=== PATIENT | female | born 1980 | race Caucasian/White ===

== ENCOUNTER → 2019-08-05 | Outpatient (CLI) | payer BC ==
--- NOTE | 2019-08-06 12:01 | ECHOF ---
Referral Reason:R78.82 elevated C-reactive protein MEASUREMENTS -------- HEIGHT: 162.6 cm WEIGHT: 104.3 kg BP: RVIDd: 3.3 cm (< 3.3) IVSd: 1.1 cm (0.6 - 1.1) LVIDd: 3.8 cm (3.9 - 5.3) LVPWd: 1.6 cm (0.6 - 1.1) IVSs: 1.1 cm LVIDs: 3.3 cm LVPWs: 1.4 cm LA Diam: 3.5 cm (2.7 - 3.8) LAESV Index (A-L): 21.05 ml/m Ao Diam: 3.2 cm (2.0 - 3.7) AV Cusp: 1.8 cm (1.5 - 2.6) LA Diam: 3.3 cm (2.7 - 3.8) MV EXCURSION: 19.783 mm (> 18.000) MV EF SLOPE: 76 mm/s (70 - 150) EPSS: 0.9 cm MV E Parrish: 0.57 m/s MV DecT: 243 ms MV A Parrish: 0.76 m/s MV E/A Ratio: 0.75 RAP: 5.00 mmHg RVSP: 20.05 mmHg FINDINGS -------- Sinus rhythm. This was a technically good study. LV size, wall thickness and systolic function are normal, with an EF greater than 55%. The left ean tricular size is normal. Overall left ventricular systolic function is normal with, an EF between 5 5 - 60 %. The diastolic filling pattern is normal for the age of the patient 6.42. The right ventricle is normal in size. The left atrial size is normal. Normal LA size by volume 22+/-6 ml/m2. The right atrial size is normal. The aortic valve is trileaflet, and appears structurally normal. No aortic stenosis or regurgitation. Mild mitral regurgitation is present. Mild tricuspid regurgitation present. Right ventricular systolic pressure is normal at < 35 mmHg. There is no evidence of pulmonary hypertension. There is no pulmonic regurgitation present. The aortic root size is normal. Echo free space indicative of a pericardial fat pad. CONCLUSIONS -------- 1. Sinus rhythm. 2. This was a technically good study. 3. LV size, wall thickness and systolic function are normal, with an EF greater than 55%. 4. The left ventricular size is normal. 5. Overall left ventricular systolic function is normal with, an EF between 55 - 60 %. 6. The diastolic filling pattern is normal for the age of the patient 6.42 7. The right ventricle is normal in size. 8. The left atrial size is normal. 9. Normal LA size by volume 22+/-6 ml/m2. 10. The right atrial size is normal. 11. The aortic valve is trileaflet, and appears structurally normal. No aortic stenosis or regurgitat ion. 12. Mild mitral regurgitation is present. 13. Mild tricuspid regurgitation present. 14. Right ventricular systolic pressure is normal at < 35 mmHg. 15. There is no evidence of pulmonary hypertension. 16. There is no pulmonic regurgitation present. 17. The aortic root size is normal. 18. Echo free space indicative of a pericardial fat pad. [employer] SUPERVISOR: Gladis Dumont RDCS
--- NOTE | 2019-08-06 12:54 | ECHOS ---
STRESS ECHOCARDIOGRAM INDICATIONS: Chest pain, shortness of breath, elevated C protein MEDICATIONS: Lamotrigine, water pill BASELINE HEART RATE: 101 BASELINE BLOOD PRESSURE: 134/52 MAXIMUM HEART RATE: 169 MAXIMUM BLOOD PRESSURE: 166/75 85% MPHR: 152 100% MPHR: 179 METS: 7.0 MAXIMUM STAGE REACHED: 2 TOTAL EXERCISE TIME: 5:00 CLINICAL INFORMATION: A stress exercise test was performed. Patient was exercised for a total period of 5 minutes. Peak heart rate of 169 was achieved. Maximum blood pressure of 166/75 mmHg was noted. Test was terminated because patient got short of breath, did not complain of any chest pain during the test. Resting EKG shows normal sinus rhythm with normal WI interval and QRS duration and normal ST-T waves. No ST-segment depression suggestive of ischemia is noted. FINAL IMPRESSION: This exercise test is not suggestive of ischemia. The patient's exercise tolerance is below average. The patient did not complain of any chest pain during the test. MMODL / IJN: [id number] /
== END | disposition home or self-care (01) ==
LOC: RADNMMAIN 10:30
PROVIDERS: ATTEND Family Medicine
DX: I08.1 Rheumatic disorders of both mitral and tricuspid valves (principal); R79.82 Elevated C-reactive protein (CRP)
CPT/HCPCS: 93017; 93306

== ENCOUNTER → 2020-05-29 | Outpatient (CLI) | payer BC | END | disposition home or self-care (01) | LOC: LABWHC1 14:45 | PROVIDERS: ATTEND Family Medicine | DX: Z20.828 Contact with and (suspected) exposure to other viral communicable diseases (principal) | CPT/HCPCS: U0003; C9803 ==

== ENCOUNTER 2020-11-02 23:02 | Emergency (ER) | payer BC ==
[2020-11-02 23:08] VITALS: RESP 18
--- NOTE | 2020-11-02 23:36 | XR ---
EXAMINATION TYPE: XR chest 2V DATE OF EXAM: 11/02/2020 COMPARISON: 07/12/2017 HISTORY: Short of breath TECHNIQUE: FINDINGS: Heart and mediastinum are normal. Lungs are clear of infiltrate. There is no heart failure. There are no hilar masses. Bony thorax is intact. IMPRESSION: No active cardiopulmonary disease. Normal heart. No change.
--- NOTE | 2020-11-03 01:49 | CT ---
EXAM: CT Angiography Chest With Intravenous Contrast CLINICAL HISTORY: SOB; COVID; Chest pain TECHNIQUE: Axial computed tomographic angiography images of the chest with intravenous contrast. CTDI is X 16.37 mGy and DLP is 474.6 mGy-cm. This CT exam was performed using one or more of the following dose reduction techniques: automated exposure control, adjustment of the mA and/or kV according to patient size, and/or use of iterative reconstruction technique. MIP reconstructed images were created and reviewed. COMPARISON: No relevant prior studies available. FINDINGS: Pulmonary arteries: Unremarkable. No pulmonary embolism. Aorta: No acute findings. No thoracic aortic aneurysm. Lungs: Unremarkable. No mass. No consolidation. Pleural space: Unremarkable. No significant effusion. No pneumothorax. Heart: Unremarkable. No cardiomegaly. No significant pericardial effusion. No evidence of RV dysfunction. Bones/joints: No acute fracture. No dislocation. Soft tissues: Unremarkable. Lymph nodes: Unremarkable. No enlarged lymph nodes. IMPRESSION: Negative chest CTA. No pulmonary embolism.
--- NOTE | 2020-11-03 02:43 | ED ---
URI HPI - General Chief Complaint: Upper Respiratory Infection Stated Complaint: COVID+, SOB Time Seen by Provider: 11/03/20 00:20 Source: patient Mode of arrival: ambulatory Limitations: no limitations - History of Present Illness Initial Comments: 40-year-old female patient diagnosed with COVID-19 on 10/15/2020 presents to the emergency department today for evaluation of low oxygen saturation and persistent shortness of breath. Patient states she is at home and got a reading of 85-88% on her home O2 monitor. States that she has been having persistent shortness of breathand chest pain. She did see her primary care physician this morning. She was started on dexamethasone. She is completing a course of doxycycline, has 4 days left. States that she has persistent cough. Denies any sputum production. Denies any nausea vomiting or diarrhea. Denies any swelling to her legs or tenderness to the calves. Patient denies any recent rash, fever, chills, abdominal pain, back pain, numbness, tingling, dizziness, weakness, hematuria, dysuria, urinary urgency, urinary frequency, headache, visual changes, or any other complaints. - Related Data Home Medications Medication Instructions Recorded Confirmed Ascorbic Acid/Multivit-Min 1,000 mg PO DAILY PRN 07/12/17 07/12/17 [Emergen-C 1,000 mg Packet] Azithromycin [Zithromax Z-pack] See Taper PO DAILY 07/12/17 07/12/17 Fexofenadine/Pseudoephedrine 1 tab PO BID 07/12/17 07/12/17 [Yareli-D 12 Hour Tablet] Fluticasone Nasal [place] [Flonase 2 spr EA NOSTRIL DAILY PRN 07/12/17 07/12/17 Nasal [place]] Multivitamins, Thera [Multivitamin 1 tab PO DAILY 07/12/17 07/12/17 (formulary)] buPROPion HCL [Wellbutrin SR] 150 mg PO BID 07/12/17 07/12/17 Previous Rx's Medication Instructions Recorded Albuterol Inhaler (Mhu) [Ventolin 1 - 2 puff INHALATION Q6HR PRN #2 07/12/17 Hfa Inhaler (Mhu)] inhaler Levofloxacin [Levaquin] 750 mg PO DAILY #5 tab 07/12/17 Gvlk-Aznq-Ovh 6.25-5-10Mg/5Ml 5 ml PO TID #100 ml 07/12/17 [Phenergan VC with Codeine] predniSONE 50 mg PO DAILY #7 tablet 07/12/17 Allergies Allergy/AdvReac Type Severity Reaction Status Date / Time Penicillins Allergy Rash/Hives Verified 07/12/17 17:42 codeine AdvReac Nausea & Verified 07/12/17 17:42 Vomiting Review of Systems ROS Statement: Those systems with pertinent positive or pertinent negative responses have been documented in the HPI. ROS Other: All systems not noted in ROS Statement are negative. Past Medical History Additional Past Medical History / Comment(s): fibroids History of Any Multi-Drug Resistant Organisms: None Reported Past Surgical History: Cholecystectomy, Hysterectomy, Tubal Ligation Additional Past Surgical History / Comment(s): d&C Past Psychological History: Depression Smoking Status: Never smoker Past Alcohol Use History: None Reported Past Drug Use History: None Reported General Exam Limitations: no limitations General appearance: alert, in no apparent distress, other Eye exam: Present: normal appearance, PERRL, EOMI. Absent: scleral icterus, conjunctival injection, periorbital swelling ENT exam: Present: normal exam, normal oropharynx, mucous membranes moist Respiratory exam: Present: normal lung sounds bilaterally. Absent: respiratory distress, wheezes, rales, rhonchi, stridor Cardiovascular Exam: Present: normal rhythm, tachycardia, normal heart sounds. Absent: systolic murmur, diastolic murmur, rubs, gallop, clicks GI/Abdominal exam: Present: soft, normal bowel sounds. Absent: distended, tenderness, guarding, rebound, rigid Neurological exam: Present: alert, oriented X3, CN II-XII intact Psychiatric exam: Present: normal affect, normal mood Skin exam: Present: warm, dry, intact, normal color. Absent: rash Course Vital Signs 11/02/20 11/03/20 23:05 02:43 Temperature 98.2 F 97.5 F L Pulse Rate 121 H 82 Respiratory 18 18 Rate Blood Pressure 149/77 108/71 O2 Sat by Pulse 96 94 L Oximetry Medical Decision Making - Medical Decision Making 40-year-old female patient presents to the emergency department today for evaluation of low oxygen saturation and persistent shortness of breath after being diagnosed with COVID-19 on 10/15/2020. Physical examination did reveal clear equal lung sounds. She was mildly tachycardic with a rate around 100. Oxygen saturation ranged from 92-97% on room air and with ambulation. Chest x- ray showed no acute abnormalities. Patient's primary care physician was apparently worried about ulnar embolism so we did obtain a CT chest. This was negative for pulmonary embolism and showed no abnormalities. I did discuss fin dings and results with the patient. She is instructed to continue taking oral steroids and her antibiotic. Return parameters were discussed in detail. She verbalizes understanding and agrees with this plan. Case discussed with my attending Dr. Gray. - Radiology Data Radiology results: report reviewed, image reviewed Two-view x-ray of the chest is obtained. Report was reviewed in its entirety. Impression by Dr. Elkins shows no active cardiopulmonary disease. Normal heart. No change. CT chest with contrast is obtained. Report reviewed in its entirety. Impression by Dr. Roman shows negative chest CTA. No pulmonary embolism. Disposition Clinical Impression: COVID-19, Shortness of breath Disposition: HOME SELF-CARE Condition: Good Instructions (If sedation given, give patient instructions): Coronavirus Disease 2019 (COVID-19), Shortness of Breath (ED) Additional Instructions: Follow up with [facility] physician for recheck in 1-2 days. Return to the emergency department for any new, worsening, or concerning symptoms Is patient prescribed a controlled substance at d/c from ED?: No Referrals: Topher Duarte DO [Primary Care Provider] - 1-2 days Time of Disposition: 02:43
[2020-11-03 02:44] VITALS: BP 108/71; PULSE 82; TEMP 97.5
--- NOTE | 2020-11-03 02:56 | ED ---
General Adult HPI - General Chief complaint: Upper Respiratory Infection Stated complaint: COVID+, SOB Time Seen by Provider: 11/03/20 00:20 Source: patient Mode of arrival: ambulatory Limitations: no limitations - Related Data Home Medications Medication Instructions Recorded Confirmed Ascorbic Acid/Multivit-Min 1,000 mg PO DAILY PRN 07/12/17 07/12/17 [Emergen-C 1,000 mg Packet] Azithromycin [Zithromax Z-pack] See Taper PO DAILY 07/12/17 07/12/17 Fexofenadine/Pseudoephedrine 1 tab PO BID 07/12/17 07/12/17 [Yareli-D 12 Hour Tablet] Fluticasone Nasal [place] [Flonase 2 spr EA NOSTRIL DAILY PRN 07/12/17 07/12/17 Nasal [place]] Multivitamins, Thera [Multivitamin 1 tab PO DAILY 07/12/17 07/12/17 (formulary)] buPROPion HCL [Wellbutrin SR] 150 mg PO BID 07/12/17 07/12/17 Previous Rx's Medication Instructions Recorded Albuterol Inhaler (Mhu) [Ventolin 1 - 2 puff INHALATION Q6HR PRN #2 07/12/17 Hfa Inhaler (Mhu)] inhaler Levofloxacin [Levaquin] 750 mg PO DAILY #5 tab 07/12/17 Azpo-Dtur-Goc 6.25-5-10Mg/5Ml 5 ml PO TID #100 ml 07/12/17 [Phenergan VC with Codeine] predniSONE 50 mg PO DAILY #7 tablet 07/12/17 Allergies Allergy/AdvReac Type Severity Reaction Status Date / Time Penicillins Allergy Rash/Hives Verified 07/12/17 17:42 codeine AdvReac Nausea & Verified 07/12/17 17:42 Vomiting Review of Systems ROS Statement: Those systems with pertinent positive or pertinent negative responses have been documented in the HPI. ROS Other: All systems not noted in ROS Statement are negative. Past Medical History Additional Past Medical History / Comment(s): fibroids History of Any Multi-Drug Resistant Organisms: None Reported Past Surgical History: Cholecystectomy, Hysterectomy, Tubal Ligation Additional Past Surgical History / Comment(s): d&C Past Psychological History: Depression Smoking Status: Never smoker Past Alcohol Use History: None Reported Past Drug Use History: None Reported General Exam Limitations: no limitations Course Vital Signs 11/02/20 23:05 Temperature 98.2 F Pulse Rate 121 H Respiratory 18 Rate Blood Pressure 149/77 O2 Sat by Pulse 96 Oximetry Disposition Clinical Impression: COVID-19, Shortness of breath Disposition: HOME SELF-CARE Condition: Good Instructions (If sedation given, give patient instructions): Coronavirus Disease 2019 (COVID-19), Shortness of Breath (ED) Referrals: Topher Duarte DO [Primary Care Provider] - 1-2 days
== END 2020-11-03 02:49 | disposition home or self-care (01) ==
LOC: EC 23:02
DX: U07.1 COVID-19 (principal); F32.9 Major depressive disorder, single episode, unspecified; Z88.0 Allergy status to penicillin
CPT/HCPCS: 71046; 71275; 99285; Q9967

== ENCOUNTER → 2021-10-05 | Outpatient (CLI) | payer BC ==
--- NOTE | 2021-10-05 08:45 | US ---
EXAMINATION TYPE: US thyroid st tissue head/neck DATE OF EXAM: 10/05/2021 COMPARISON: NONE CLINICAL HISTORY: E04.9 NONTOXIC GOITER. Pt states recent abnormal thyroid labs GLAND SIZE: Right Lobe: 4.7 x 1.8 x 1.4 cm Overall Parenchyma: heterogenous Left Lobe: 4.6 x 1.6 x 1.7 cm Overall Parenchyma: heterogeneous Isthmus Thickness: 0.2 cm Bilateral neck scanned, no evidence of lymphadenopathy. No definite nodules visualized bilaterally, h owever thyroid heterogeneous throughout bilaterally. IMPRESSION: Nonspecific glandular heterogeneity without discrete nodule identified at this time.
== END | disposition home or self-care (01) ==
LOC: RADUSWWP 08:15
PROVIDERS: ATTEND Family Medicine
DX: E04.9 Nontoxic goiter, unspecified (principal)
CPT/HCPCS: 76536